=== PATIENT | female | born 1950 | race Native Hawaiian/Other Pacific Islander ===

== ENCOUNTER 2016-10-28 08:42 | Inpatient (IN) | payer OTHER | END 2016-11-28 08:00 | disposition still patient (30) | LOC: PAVA 08:42 | PROVIDERS: ADMIT Internal Medicine | DX: Z51.89 Encounter for other specified aftercare (principal) ==

== ENCOUNTER 2016-11-28 09:00 | Inpatient (IN) | payer OTHER | END 2016-12-29 08:42 | disposition still patient (30) | LOC: PAVA 09:00 | PROVIDERS: ADMIT Internal Medicine | DX: Z51.89 Encounter for other specified aftercare (principal) ==

== ENCOUNTER 2016-12-17 17:20 | Outpatient (CLI) | payer OTHER | END 2016-12-17 20:53 | disposition home or self-care (01) | LOC: CT 17:20 | DX: R22.0 Localized swelling, mass and lump, head (principal); Z85.72 Personal history of non-Hodgkin lymphomas | CPT/HCPCS: Q9963 ==

== ENCOUNTER 2016-12-22 11:11 | Outpatient (CLI) | payer OTHER | END 2016-12-22 23:43 | disposition home or self-care (01) | LOC: CT 11:11 | DX: E04.1 Nontoxic single thyroid nodule (principal); Z85.72 Personal history of non-Hodgkin lymphomas; R59.0 Localized enlarged lymph nodes | CPT/HCPCS: 36415; 82565; 84520; Q9963 ==

== ENCOUNTER 2016-12-29 09:19 | Inpatient (IN) | payer OTHER | END 2017-01-26 08:19 | disposition still patient (30) | LOC: PAVA 09:19 | PROVIDERS: ADMIT Internal Medicine | DX: Z51.89 Encounter for other specified aftercare (principal) ==

== ENCOUNTER 2017-01-26 08:51 | Inpatient (IN) | payer OTHER | END 2017-02-26 08:03 | disposition still patient (30) | LOC: PAVA 08:51 | PROVIDERS: ADMIT Internal Medicine | DX: Z51.89 Encounter for other specified aftercare (principal) ==

== ENCOUNTER 2017-02-26 09:55 | Inpatient (IN) | payer OTHER | END 2017-03-28 08:32 | disposition still patient (30) | LOC: PAVA 09:55 | PROVIDERS: ADMIT Internal Medicine | DX: Z51.89 Encounter for other specified aftercare (principal) ==

== ENCOUNTER 2017-03-26 00:41 | Outpatient (CLI) | payer OTHER | END 2017-03-26 19:06 | disposition home or self-care (01) | LOC: LAB 00:41 | DX: Z16.24 Resistance to multiple antibiotics (principal) | CPT/HCPCS: 87081 ==

== ENCOUNTER 2017-03-28 08:56 | Inpatient (IN) | payer OTHER | END 2017-04-28 08:12 | disposition still patient (30) | LOC: PAVA 08:56 | PROVIDERS: ADMIT Internal Medicine | DX: Z51.89 Encounter for other specified aftercare (principal) ==

== ENCOUNTER 2017-04-28 08:31 | Inpatient (IN) | payer OTHER | END 2017-05-28 14:58 | disposition still patient (30) | LOC: PAVA 08:31 | PROVIDERS: ADMIT Internal Medicine | DX: Z51.89 Encounter for other specified aftercare (principal) ==

== ENCOUNTER 2017-05-03 07:48 | Outpatient (CLI) | payer OTHER ==
[2017-05-03 08:40] LABS: PLATELET COUNT 193 K/uL (152-353)
[2017-05-03 08:43] LABS: POTASSIUM 3.9 mmol/L (3.6-5.2)
== END 2017-05-03 19:09 | disposition home or self-care (01) ==
LOC: LABW 07:48
PROVIDERS: Internal Medicine
DX: Z79.899 Other long term (current) drug therapy (principal); I10 Essential (primary) hypertension; E78.4 Other hyperlipidemia; Z51.81 Encounter for therapeutic drug level monitoring
CPT/HCPCS: 36415; 80053; 80061; 85027

== ENCOUNTER 2017-05-28 15:15 | Inpatient (IN) | payer OTHER | END 2017-06-28 08:37 | disposition still patient (30) | LOC: PAVA 15:15 | PROVIDERS: ADMIT Internal Medicine | DX: Z51.89 Encounter for other specified aftercare (principal) ==

== ENCOUNTER 2017-06-28 09:26 | Inpatient (IN) | payer OTHER | END 2017-07-29 08:12 | disposition still patient (30) | LOC: PAVA 09:26 | PROVIDERS: ADMIT Internal Medicine | DX: Z51.89 Encounter for other specified aftercare (principal) ==

== ENCOUNTER 2017-07-29 08:34 | Inpatient (IN) | payer OTHER | END 2017-08-28 09:09 | disposition still patient (30) | LOC: PAVA 08:34 | PROVIDERS: ADMIT Internal Medicine | DX: Z51.89 Encounter for other specified aftercare (principal) ==

== ENCOUNTER 2017-08-28 09:30 | Inpatient (IN) | payer OTHER | END 2017-09-28 10:26 | disposition still patient (30) | LOC: PAVA 09:30 | PROVIDERS: ADMIT Internal Medicine ==

== ENCOUNTER 2017-09-28 12:34 | Inpatient (IN) | payer OTHER | END 2017-10-28 08:14 | disposition still patient (30) | LOC: PAVA 12:34 | PROVIDERS: ADMIT Internal Medicine ==

== ENCOUNTER 2017-10-28 09:10 | Inpatient (IN) | payer OTHER | END 2017-11-28 08:33 | disposition still patient (30) | LOC: PAVA 09:10 | PROVIDERS: ADMIT Internal Medicine ==

== ENCOUNTER 2017-11-02 06:12 | Outpatient (CLI) | payer OTHER ==
[2017-11-02 06:49] LABS: PLATELET COUNT 179 K/uL (152-353)
[2017-11-02 07:00] LABS: SODIUM 142 mmol/L (136-145)
== END 2017-11-02 21:07 | disposition home or self-care (01) ==
LOC: LAB 06:12
PROVIDERS: Internal Medicine
DX: I10 Essential (primary) hypertension (principal); E04.1 Nontoxic single thyroid nodule
CPT/HCPCS: 80053; 80061; 85027

== ENCOUNTER 2017-11-28 09:16 | Inpatient (IN) | payer OTHER | END 2017-12-29 08:34 | disposition still patient (30) | LOC: PAVA 09:16 | PROVIDERS: ADMIT Internal Medicine ==

== ENCOUNTER 2017-12-29 09:43 | Inpatient (IN) | payer OTHER | END 2018-01-26 08:09 | disposition still patient (30) | LOC: PAVA 09:43 | PROVIDERS: ADMIT Internal Medicine ==

== ENCOUNTER 2018-01-13 08:28 | Outpatient (CLI) | payer OTHER | END 2018-01-13 19:38 | disposition home or self-care (01) | LOC: RAD 08:28 | DX: R06.2 Wheezing (principal); R06.02 Shortness of breath ==

== ENCOUNTER 2018-01-16 10:04 | Outpatient (CLI) | payer OTHER | END 2018-01-16 19:36 | disposition home or self-care (01) | LOC: US 10:04 | DX: E04.8 Other specified nontoxic goiter (principal) ==

== ENCOUNTER 2018-01-26 09:00 | Inpatient (IN) | payer OTHER | END 2018-02-26 08:00 | disposition still patient (30) | LOC: PAVA 09:00 | PROVIDERS: ADMIT Internal Medicine ==

== ENCOUNTER 2018-02-26 09:00 | Inpatient (IN) | payer OTHER | END 2018-03-28 08:13 | disposition still patient (30) | LOC: PAVA 09:00 | PROVIDERS: ADMIT Internal Medicine ==

== ENCOUNTER 2018-03-28 08:52 | Inpatient (IN) | payer OTHER | END 2018-04-28 08:21 | disposition still patient (30) | LOC: PAVA 08:52 | PROVIDERS: ADMIT Internal Medicine ==

== ENCOUNTER 2018-04-28 06:07 | Outpatient (CLI) | payer OTHER ==
[2018-04-28 08:07] LABS: PLATELET COUNT 174 K/uL (152-353)
== END 2018-04-28 19:19 | disposition home or self-care (01) ==
LOC: LAB 06:07
PROVIDERS: Internal Medicine
DX: I10 Essential (primary) hypertension (principal); E78.4 Other hyperlipidemia
CPT/HCPCS: 36415; 80053; 80061; 85027

== ENCOUNTER 2018-04-28 08:45 | Inpatient (IN) | payer OTHER | END 2018-05-28 14:16 | disposition still patient (30) | LOC: PAVA 08:45 | PROVIDERS: ADMIT Internal Medicine ==

== ENCOUNTER 2018-05-28 14:36 | Inpatient (IN) | payer OTHER | END 2018-06-28 08:00 | disposition still patient (30) | LOC: PAVA 14:36 | PROVIDERS: ADMIT Internal Medicine ==

== ENCOUNTER 2018-06-28 09:00 | Inpatient (IN) | payer OTHER | END 2018-07-29 09:58 | disposition still patient (30) | LOC: PAVA 09:00 | PROVIDERS: ADMIT Internal Medicine ==

== ENCOUNTER 2018-07-29 10:13 | Inpatient (IN) | payer OTHER | END 2018-08-28 08:41 | disposition still patient (30) | LOC: PAVA 10:13 | PROVIDERS: ADMIT Internal Medicine ==

== ENCOUNTER 2018-08-11 11:57 | Outpatient (CLI) | payer OTHER | END 2018-08-11 19:41 | disposition home or self-care (01) | LOC: LAB 11:57 | DX: R41.82 Altered mental status, unspecified (principal) | CPT/HCPCS: 81000 ==

== ENCOUNTER 2018-08-28 09:04 | Inpatient (IN) | payer OTHER | END 2018-09-28 08:12 | disposition still patient (30) | LOC: PAVA 09:04 | PROVIDERS: ADMIT Internal Medicine ==

== ENCOUNTER 2018-09-28 08:32 | Inpatient (IN) | payer OTHER | END 2018-10-28 08:06 | disposition still patient (30) | LOC: PAVA 08:32 | PROVIDERS: ADMIT Internal Medicine ==

== ENCOUNTER 2018-10-28 08:22 | Inpatient (IN) | payer OTHER | END 2018-11-28 10:22 | disposition still patient (30) | LOC: PAVA 08:22 | PROVIDERS: ADMIT Internal Medicine ==

== ENCOUNTER 2018-11-06 04:34 | Outpatient (CLI) | payer OTHER ==
[2018-11-06 06:30] LABS: PLATELET COUNT 190 K/uL (152-353)
== END 2018-11-06 22:44 | disposition home or self-care (01) ==
LOC: LAB 04:34
PROVIDERS: Internal Medicine
DX: I10 Essential (primary) hypertension (principal); E78.49 Other hyperlipidemia
CPT/HCPCS: 80053; 80061; 85027

== ENCOUNTER 2018-11-07 10:12 | Outpatient (CLI) | payer OTHER | END 2018-11-07 22:10 | disposition home or self-care (01) | LOC: RAD 10:12 | DX: Z78.0 Asymptomatic menopausal state (principal) ==

== ENCOUNTER 2018-11-28 10:59 | Inpatient (IN) | payer OTHER | END 2018-12-29 14:17 | disposition still patient (30) | LOC: PAVA 10:59 | PROVIDERS: ADMIT Internal Medicine ==

== ENCOUNTER 2018-12-29 14:21 | Inpatient (IN) | payer OTHER | END 2019-01-26 09:16 | disposition still patient (30) | LOC: PAVA 14:21 | PROVIDERS: ADMIT Internal Medicine ==

== ENCOUNTER 2019-01-26 10:07 | Inpatient (IN) | payer OTHER | END 2019-02-26 07:56 | disposition still patient (30) | LOC: PAVA 10:07 | PROVIDERS: ADMIT Internal Medicine ==

== ENCOUNTER 2019-02-26 08:36 | Inpatient (IN) | payer OTHER | END 2019-03-28 09:43 | disposition still patient (30) | LOC: PAVA 08:36 | PROVIDERS: ADMIT Internal Medicine ==

== ENCOUNTER 2019-03-28 11:05 | Inpatient (IN) | payer OTHER | END 2019-04-28 08:14 | disposition still patient (30) | LOC: PAVA 11:05 | PROVIDERS: ADMIT Internal Medicine | DX: Z51.89 Encounter for other specified aftercare (principal) ==

== ENCOUNTER 2019-03-30 08:26 | Outpatient (CLI) | payer OTHER | END 2019-03-30 19:58 | disposition home or self-care (01) | LOC: US 08:26 | DX: K80.20 Calculus of gallbladder without cholecystitis without obstruction (principal) ==

== ENCOUNTER 2019-04-28 08:30 | Inpatient (IN) | payer OTHER | END 2019-05-28 08:31 | disposition still patient (30) | LOC: PAVA 08:30 | PROVIDERS: ADMIT Internal Medicine ==

== ENCOUNTER 2019-04-30 04:36 | Outpatient (CLI) | payer OTHER ==
[2019-04-30 05:29] LABS: PLATELET COUNT 191 K/uL (152-353)
[2019-04-30 06:52] LABS: POTASSIUM 4.1 mmol/L (3.6-5.2)
== END 2019-04-30 19:08 | disposition home or self-care (01) ==
LOC: LAB 04:36
PROVIDERS: Internal Medicine
DX: I10 Essential (primary) hypertension (principal)
CPT/HCPCS: 36415; 80053; 82306; 82607; 85027

== ENCOUNTER 2019-05-28 09:21 | Inpatient (IN) | payer OTHER | END 2019-06-28 09:09 | disposition still patient (30) | LOC: PAVA 09:21 | PROVIDERS: ADMIT Internal Medicine ==

== ENCOUNTER 2019-06-28 10:16 | Inpatient (IN) | payer OTHER | END 2019-07-29 15:59 | disposition still patient (30) | LOC: PAVA 10:16 | PROVIDERS: ADMIT Internal Medicine ==

== ENCOUNTER 2019-06-30 04:12 | Outpatient (CLI) | payer OTHER | END 2019-06-30 23:31 | disposition home or self-care (01) | LOC: LAB 04:12 | PROVIDERS: Internal Medicine | DX: E78.5 Hyperlipidemia, unspecified (principal) | CPT/HCPCS: 80061 ==

== ENCOUNTER 2019-07-29 16:07 | Inpatient (IN) | payer OTHER | END 2019-08-28 08:06 | disposition still patient (30) | LOC: PAVA 16:07 | PROVIDERS: ADMIT Internal Medicine ==

== ENCOUNTER 2019-07-31 06:28 | Outpatient (CLI) | payer OTHER | END 2019-07-31 22:47 | disposition home or self-care (01) | LOC: LAB 06:28 | DX: E55.9 Vitamin D deficiency, unspecified (principal) | CPT/HCPCS: 82306 ==

== ENCOUNTER 2019-08-28 09:15 | Inpatient (IN) | payer OTHER | END 2019-09-28 09:04 | disposition still patient (30) | LOC: PAVA 09:15 | PROVIDERS: ADMIT Internal Medicine ==

== ENCOUNTER 2019-09-28 11:03 | Inpatient (IN) | payer OTHER | END 2019-10-28 08:00 | disposition still patient (30) | LOC: PAVA 11:03 | PROVIDERS: ADMIT Internal Medicine ==

== ENCOUNTER 2019-10-28 09:00 | Inpatient (IN) | payer OTHER | END 2019-11-28 08:00 | disposition still patient (30) | LOC: PAVA 09:00 | PROVIDERS: ADMIT Internal Medicine ==

== ENCOUNTER 2019-10-31 12:15 | Outpatient (CLI) | payer OTHER ==
[2019-10-31 12:34] LABS: PLATELET COUNT 212 K/uL (152-353)
[2019-10-31 12:47] LABS: POTASSIUM 4.5 mmol/L (3.6-5.2)
== END 2019-10-31 20:03 | disposition home or self-care (01) ==
LOC: LAB 12:15
PROVIDERS: Internal Medicine
DX: I10 Essential (primary) hypertension (principal)
CPT/HCPCS: 36415; 80053; 85027

== ENCOUNTER 2019-11-28 08:29 | Inpatient (IN) | payer OTHER | END 2019-12-29 09:32 | disposition still patient (30) | LOC: PAVA 08:29 | PROVIDERS: ADMIT Internal Medicine ==

== ENCOUNTER 2019-12-29 09:50 | Inpatient (IN) | payer OTHER | END 2020-01-27 12:46 | disposition still patient (30) | LOC: PAVA 09:50 | PROVIDERS: ADMIT Internal Medicine ==

== ENCOUNTER 2019-12-30 03:58 | Outpatient (CLI) | payer OTHER | END 2019-12-30 19:00 | disposition home or self-care (01) | LOC: LAB 03:58 | PROVIDERS: Internal Medicine | DX: E78.5 Hyperlipidemia, unspecified (principal) | CPT/HCPCS: 80061 ==

== ENCOUNTER 2020-01-27 13:06 | Inpatient (IN) | payer OTHER | END 2020-02-27 08:59 | disposition still patient (30) | LOC: PAVA 13:06 | PROVIDERS: ADMIT Internal Medicine ==

== ENCOUNTER 2020-02-27 09:24 | Inpatient (IN) | payer OTHER | END 2020-03-28 08:04 | disposition still patient (30) | LOC: PAVA 09:24 | PROVIDERS: ADMIT Internal Medicine ==

== ENCOUNTER 2020-03-28 08:54 | Inpatient (IN) | payer OTHER | END 2020-04-28 08:12 | disposition still patient (30) | LOC: PAVA 08:54 | PROVIDERS: ADMIT Internal Medicine | CPT/HCPCS: 87635; U0002 ==

== ENCOUNTER 2020-04-28 06:24 | Outpatient (CLI) | payer OTHER ==
[2020-04-28 08:08] LABS: PLATELET COUNT 205 K/uL (152-353)
[2020-04-28 08:27] LABS: POTASSIUM 4.1 mmol/L (3.6-5.2)
== END 2020-04-28 19:49 | disposition home or self-care (01) ==
LOC: LAB 06:24
PROVIDERS: Internal Medicine
DX: I10 Essential (primary) hypertension (principal)
CPT/HCPCS: 80053; 85027

== ENCOUNTER 2020-04-28 08:45 | Inpatient (IN) | payer OTHER | END 2020-05-28 08:27 | disposition still patient (30) | LOC: PAVA 08:45 | PROVIDERS: ADMIT Internal Medicine | CPT/HCPCS: 87635; U0002 ==

== ENCOUNTER 2020-04-29 14:16 | Outpatient (CLI) | payer OTHER | END 2020-04-29 19:14 | disposition home or self-care (01) | LOC: RAD 14:16 | DX: R06.02 Shortness of breath (principal) ==

== ENCOUNTER 2020-05-28 09:52 | Inpatient (IN) | payer OTHER | END 2020-06-28 08:23 | disposition still patient (30) | LOC: PAVA 09:52 | PROVIDERS: ADMIT Internal Medicine | CPT/HCPCS: 87635; U0002 ==

== ENCOUNTER 2020-06-28 09:01 | Inpatient (IN) | payer OTHER | END 2020-07-29 10:51 | disposition still patient (30) | LOC: PAVA 09:01 | PROVIDERS: ADMIT Internal Medicine | CPT/HCPCS: 87635; U0002 ==

== ENCOUNTER 2020-06-30 08:53 | Outpatient (CLI) | payer OTHER | END 2020-06-30 22:35 | disposition home or self-care (01) | LOC: LAB 08:53 | PROVIDERS: Internal Medicine | DX: E78.49 Other hyperlipidemia (principal) | CPT/HCPCS: 80061 ==

== ENCOUNTER 2020-07-15 07:45 | Outpatient (CLI) | payer OTHER | END 2020-07-15 19:38 | disposition home or self-care (01) | LOC: LAB 07:45 | DX: E04.1 Nontoxic single thyroid nodule (principal) | CPT/HCPCS: 82565; 84520 ==

== ENCOUNTER 2020-07-16 10:02 | Outpatient (CLI) | payer OTHER | END 2020-07-16 21:27 | disposition home or self-care (01) | LOC: CT 10:02 | DX: E04.1 Nontoxic single thyroid nodule (principal) | CPT/HCPCS: Q9963 ==

== ENCOUNTER 2020-07-29 11:31 | Inpatient (IN) | payer OTHER | END 2020-08-28 09:34 | disposition still patient (30) | LOC: PAVA 11:31 | PROVIDERS: ADMIT Internal Medicine ==

== ENCOUNTER 2020-08-06 08:41 | Outpatient (CLI) | payer OTHER ==
[~2020-08-06] VITALS: Ht 30.5 cm; Wt 0.5 kg
[2020-08-06 09:00] LABS: PARTIAL THROMBOPLASTIN TIME 21.5 SECONDS (24.5-33.6)
== END 2020-08-06 23:16 | disposition home or self-care (01) ==
LOC: LAB 08:41 → US 13:00 → LAB 23:16
PROVIDERS: Internal Medicine
DX: Z01.812 Encounter for preprocedural laboratory examination (principal); R59.0 Localized enlarged lymph nodes; E04.1 Nontoxic single thyroid nodule; C73 Malignant neoplasm of thyroid gland; Z51.81 Encounter for therapeutic drug level monitoring
CPT/HCPCS: 85610; 85730

== ENCOUNTER 2020-08-28 10:53 | Inpatient (IN) | payer OTHER | END 2020-09-28 08:00 | disposition still patient (30) | LOC: PAVA 10:53 | PROVIDERS: ADMIT Internal Medicine ==

== ENCOUNTER 2020-09-24 12:06 | Outpatient (CLI) | payer OTHER | END 2020-09-24 23:24 | disposition home or self-care (01) | LOC: RESP 12:06 | DX: E04.1 Nontoxic single thyroid nodule (principal) | CPT/HCPCS: 93005 ==

== ENCOUNTER 2020-09-28 09:00 | Inpatient (IN) | payer OTHER | END 2020-10-28 08:38 | disposition still patient (30) | LOC: PAVA 09:00 | PROVIDERS: ADMIT Internal Medicine; ATTEND Internal Medicine ==

== ENCOUNTER 2020-09-29 11:19 | Outpatient (CLI) | payer OTHER ==
[2020-09-29 11:52] LABS: PLATELET COUNT 179 K/uL (152-353)
[2020-09-29 12:05] LABS: POTASSIUM 4.6 mmol/L (3.6-5.2)
== END 2020-09-29 23:25 | disposition home or self-care (01) ==
LOC: LAB 11:19
PROVIDERS: Internal Medicine
DX: Z01.818 Encounter for other preprocedural examination (principal)
CPT/HCPCS: 80053; 85027

== ENCOUNTER 2020-10-28 06:50 | Outpatient (CLI) | payer OTHER | END 2020-10-28 22:21 | disposition home or self-care (01) | LOC: LAB 06:50 | PROVIDERS: ATTEND Internal Medicine | DX: I10 Essential (primary) hypertension (principal) ==

== ENCOUNTER 2020-10-28 09:34 | Inpatient (IN) | payer OTHER | END 2020-11-28 08:29 | disposition still patient (30) | LOC: PAVA 09:34 | PROVIDERS: ADMIT Internal Medicine; ATTEND Internal Medicine ==

== ENCOUNTER 2020-10-29 10:34 | Outpatient (CLI) | payer OTHER ==
[2020-10-29 10:56] LABS: PLATELET COUNT 226 K/uL (152-353)
[2020-10-29 11:20] LABS: POTASSIUM 3.8 mmol/L (3.6-5.2)
== END 2020-10-29 19:56 | disposition home or self-care (01) ==
LOC: LAB 10:34
PROVIDERS: ATTEND Internal Medicine
DX: I10 Essential (primary) hypertension (principal)
CPT/HCPCS: 80053; 85027

== ENCOUNTER 2020-11-11 14:31 | Outpatient (CLI) | payer OTHER | END 2020-11-11 22:03 | disposition home or self-care (01) | LOC: RAD 14:31 | PROVIDERS: ATTEND Internal Medicine | DX: M81.0 Age-related osteoporosis without current pathological fracture (principal) ==

== ENCOUNTER 2020-11-28 08:59 | Inpatient (IN) | payer OTHER | END 2020-12-29 13:11 | disposition still patient (30) | LOC: PAVA 08:59 | PROVIDERS: ADMIT Internal Medicine; ATTEND Internal Medicine ==

== ENCOUNTER 2020-12-29 07:39 | Outpatient (CLI) | payer OTHER | END 2020-12-29 19:14 | disposition home or self-care (01) | LOC: LAB 07:39 | PROVIDERS: ATTEND Internal Medicine | DX: E78.49 Other hyperlipidemia (principal) | CPT/HCPCS: 80061 ==

== ENCOUNTER 2020-12-29 14:25 | Inpatient (IN) | payer OTHER | END 2021-01-26 08:41 | disposition still patient (30) | LOC: PAVA 14:25 | PROVIDERS: ADMIT Internal Medicine; ATTEND Internal Medicine ==

== ENCOUNTER 2021-01-26 09:17 | Inpatient (IN) | payer OTHER | END 2021-02-26 08:33 | disposition still patient (30) | LOC: PAVA 09:17 | PROVIDERS: ADMIT Internal Medicine; ATTEND Internal Medicine ==

== ENCOUNTER 2021-02-26 09:41 | Inpatient (IN) | payer OTHER | END 2021-03-28 11:57 | disposition still patient (30) | LOC: PAVA 09:41 | PROVIDERS: ADMIT Internal Medicine; ATTEND Internal Medicine ==

== ENCOUNTER 2021-03-28 12:12 | Inpatient (IN) | payer OTHER | END 2021-04-28 13:25 | disposition still patient (30) | LOC: PAVA 12:12 | PROVIDERS: ADMIT Internal Medicine; ATTEND Internal Medicine ==

== ENCOUNTER 2021-04-28 14:28 | Inpatient (IN) | payer OTHER | END 2021-05-28 08:00 | disposition still patient (30) | LOC: PAVA 14:28 | PROVIDERS: ADMIT Internal Medicine; ATTEND Internal Medicine ==

== ENCOUNTER 2021-04-29 11:28 | Outpatient (CLI) | payer OTHER ==
[2021-04-29 12:24] LABS: PLATELET COUNT 229 K/uL (152-353)
[2021-04-29 13:39] LABS: POTASSIUM 3.9 mmol/L (3.6-5.2)
== END 2021-04-29 21:00 | disposition home or self-care (01) ==
LOC: LAB 11:28
PROVIDERS: ATTEND Internal Medicine
DX: F20.89 Other schizophrenia (principal); C85.80 Other specified types of non-Hodgkin lymphoma, unspecified site; E78.49 Other hyperlipidemia
CPT/HCPCS: 80053; 85027

== ENCOUNTER 2021-05-28 09:00 | Inpatient (IN) | payer OTHER | END 2021-06-28 08:00 | disposition still patient (30) | LOC: PAVA 09:00 | PROVIDERS: ADMIT Internal Medicine; ATTEND Internal Medicine ==

== ENCOUNTER 2021-06-28 09:00 | Inpatient (IN) | payer OTHER | END 2021-07-29 09:09 | disposition still patient (30) | LOC: PAVA 09:00 | PROVIDERS: ADMIT Internal Medicine; ATTEND Internal Medicine ==

== ENCOUNTER 2021-06-29 09:07 | Outpatient (CLI) | payer OTHER | END 2021-06-29 22:37 | disposition home or self-care (01) | LOC: LAB 09:07 | PROVIDERS: ATTEND Internal Medicine | DX: E78.49 Other hyperlipidemia (principal) | CPT/HCPCS: 80061 ==

== ENCOUNTER 2021-07-29 09:50 | Inpatient (IN) | payer OTHER | END 2021-08-28 08:11 | disposition still patient (30) | LOC: PAVA 09:50 | PROVIDERS: ADMIT Internal Medicine; ATTEND Internal Medicine ==

== ENCOUNTER 2021-08-20 12:35 | Outpatient (CLI) | payer OTHER | END 2021-08-20 19:13 | disposition home or self-care (01) | LOC: LAB 12:35 | PROVIDERS: ATTEND Internal Medicine | DX: R30.9 Painful micturition, unspecified (principal) | CPT/HCPCS: 81000 ==

== ENCOUNTER 2021-10-28 07:17 | Outpatient (CLI) | payer OTHER ==
[2021-10-28 08:18] LABS: PLATELET COUNT 222 K/uL (152-353)
[2021-10-28 08:29] LABS: POTASSIUM 4.1 mmol/L (3.6-5.2)
== END 2021-10-28 20:10 | disposition home or self-care (01) ==
LOC: LAB 07:17
PROVIDERS: ATTEND Internal Medicine
DX: F20.89 Other schizophrenia (principal); C85.80 Other specified types of non-Hodgkin lymphoma, unspecified site; E78.49 Other hyperlipidemia
CPT/HCPCS: 80053; 85027

== ENCOUNTER 2021-10-28 09:10 | Inpatient (IN) | payer OTHER | END 2021-11-28 07:57 | disposition still patient (30) | LOC: PAVA 09:10 | PROVIDERS: ADMIT Internal Medicine; ATTEND Internal Medicine ==

== ENCOUNTER 2021-11-28 08:17 | Inpatient (IN) | payer OTHER | END 2021-12-29 08:52 | disposition still patient (30) | LOC: PAVA 08:17 | PROVIDERS: ADMIT Internal Medicine; ATTEND Internal Medicine ==

== ENCOUNTER 2021-12-29 10:52 | Inpatient (IN) | payer OTHER | END 2022-01-26 08:55 | disposition still patient (30) | LOC: PAVA 10:52 | PROVIDERS: ADMIT Internal Medicine; ATTEND Internal Medicine ==

== ENCOUNTER 2021-12-30 07:54 | Outpatient (CLI) | payer OTHER | END 2021-12-30 19:30 | disposition home or self-care (01) | LOC: LAB 07:54 | PROVIDERS: ATTEND Internal Medicine | DX: E78.49 Other hyperlipidemia (principal) | CPT/HCPCS: 80061 ==

== ENCOUNTER 2022-01-07 14:01 | Outpatient (CLI) | payer OTHER | END 2022-01-07 19:18 | disposition home or self-care (01) | LOC: RESP 14:01 | PROVIDERS: ATTEND Internal Medicine | DX: R00.0 Tachycardia, unspecified (principal) | CPT/HCPCS: 93005 ==

== ENCOUNTER 2022-01-26 11:16 | Inpatient (IN) | payer OTHER | END 2022-02-26 08:10 | disposition still patient (30) | LOC: PAVA 11:16 | PROVIDERS: ADMIT Internal Medicine; ATTEND Internal Medicine ==

== ENCOUNTER 2022-02-26 08:36 | Inpatient (IN) | payer OTHER | END 2022-03-28 10:55 | disposition still patient (30) | LOC: PAVA 08:36 | PROVIDERS: ADMIT Internal Medicine; ATTEND Internal Medicine ==

== ENCOUNTER 2022-03-28 03:51 | Inpatient (IN) | payer OTHER | END 2022-04-28 09:26 | disposition still patient (30) | LOC: PAVA 03:51 | PROVIDERS: ADMIT Internal Medicine; ATTEND Internal Medicine ==

== ENCOUNTER 2022-04-21 05:47 | Outpatient (CLI) | payer OTHER ==
[2022-04-21 06:45] LABS: POTASSIUM 3.9 mmol/L (3.6-5.2)
[2022-04-21 07:04] LABS: PLATELET COUNT 199 K/uL (152-353)
== END 2022-04-21 18:53 | disposition home or self-care (01) ==
LOC: LAB 05:47
PROVIDERS: ATTEND Internal Medicine
DX: R53.83 Other fatigue (principal)
CPT/HCPCS: 80048; 81000; 82607; 82746; 84443; 85027

== ENCOUNTER 2022-04-28 10:31 | Outpatient (CLI) | payer OTHER ==
[2022-04-28 10:45] LABS: PLATELET COUNT 201 K/uL (152-353)
[2022-04-28 10:54] LABS: POTASSIUM 4.1 mmol/L (3.6-5.2)
== END 2022-04-28 19:13 | disposition home or self-care (01) ==
LOC: LAB 10:31
PROVIDERS: ATTEND Internal Medicine
DX: E78.49 Other hyperlipidemia (principal); F20.89 Other schizophrenia; C85.80 Other specified types of non-Hodgkin lymphoma, unspecified site
CPT/HCPCS: 80053; 85027

== ENCOUNTER 2022-04-28 11:40 | Inpatient (IN) | payer OTHER | END 2022-05-28 09:01 | disposition still patient (30) | LOC: PAVA 11:40 | PROVIDERS: ADMIT Internal Medicine; ATTEND Internal Medicine ==

== ENCOUNTER 2022-05-28 10:36 | Inpatient (IN) | payer OTHER | END 2022-06-28 09:24 | disposition still patient (30) | LOC: PAVA 10:36 | PROVIDERS: ADMIT Internal Medicine; ATTEND Internal Medicine ==

== ENCOUNTER 2022-06-28 11:17 | Outpatient (CLI) | payer OTHER | END 2022-06-28 18:59 | disposition home or self-care (01) | LOC: LAB 11:17 | PROVIDERS: ATTEND Internal Medicine | DX: E78.49 Other hyperlipidemia (principal) | CPT/HCPCS: 80061 ==

== ENCOUNTER 2022-06-28 14:48 | Inpatient (IN) | payer OTHER | END 2022-07-29 08:59 | disposition still patient (30) | LOC: PAVA 14:48 | PROVIDERS: ADMIT Internal Medicine; ATTEND Internal Medicine ==

== ENCOUNTER 2022-07-23 06:47 | Outpatient (CLI) | payer OTHER | END 2022-07-23 18:52 | disposition home or self-care (01) | LOC: LAB 06:47 | PROVIDERS: ATTEND Internal Medicine Endocrinology, Diabetes & Metabolism | DX: E03.8 Other specified hypothyroidism (principal); D51.8 Other vitamin B12 deficiency anemias | CPT/HCPCS: 82607; 84443 ==

== ENCOUNTER 2022-07-29 10:10 | Inpatient (IN) | payer OTHER | END 2022-08-28 10:20 | disposition still patient (30) | LOC: PAVA 10:10 | PROVIDERS: ADMIT Internal Medicine Endocrinology, Diabetes & Metabolism; ATTEND Internal Medicine Endocrinology, Diabetes & Metabolism ==

== ENCOUNTER 2022-08-28 12:07 | Inpatient (IN) | payer OTHER | END 2022-09-28 09:45 | disposition still patient (30) | LOC: PAVA 12:07 | PROVIDERS: ADMIT Internal Medicine Endocrinology, Diabetes & Metabolism; ATTEND Internal Medicine Endocrinology, Diabetes & Metabolism ==

== ENCOUNTER 2022-09-28 10:19 | Inpatient (IN) | payer OTHER | END 2022-10-28 10:05 | disposition still patient (30) | LOC: PAVA 10:19 | PROVIDERS: ADMIT Internal Medicine Endocrinology, Diabetes & Metabolism; ATTEND Internal Medicine Endocrinology, Diabetes & Metabolism ==

== ENCOUNTER 2022-10-28 10:34 | Inpatient (IN) | payer OTHER | END 2022-11-28 10:31 | disposition still patient (30) | LOC: PAVA 10:34 | PROVIDERS: ADMIT Internal Medicine Endocrinology, Diabetes & Metabolism; ATTEND Internal Medicine Endocrinology, Diabetes & Metabolism ==

== ENCOUNTER 2022-10-29 07:52 | Outpatient (CLI) | payer OTHER ==
[2022-10-29 08:28] LABS: PLATELET COUNT 218 K/uL (152-353)
[2022-10-29 09:14] LABS: POTASSIUM 4.6 mmol/L (3.6-5.2)
== END 2022-10-29 19:09 | disposition home or self-care (01) ==
LOC: LAB 07:52
PROVIDERS: ATTEND Internal Medicine Endocrinology, Diabetes & Metabolism
DX: E78.49 Other hyperlipidemia (principal); F20.89 Other schizophrenia
CPT/HCPCS: 80053; 85027

== ENCOUNTER 2022-11-15 10:32 | Outpatient (CLI) | payer OTHER | END 2022-11-15 18:56 | disposition home or self-care (01) | LOC: RAD 10:32 | PROVIDERS: ATTEND Internal Medicine Endocrinology, Diabetes & Metabolism | DX: M85.88 Other specified disorders of bone density and structure, other site (principal); Z13.820 Encounter for screening for osteoporosis ==

== ENCOUNTER 2022-11-28 11:23 | Inpatient (IN) | payer OTHER | END 2022-12-29 08:38 | disposition still patient (30) | LOC: PAVA 11:23 | PROVIDERS: ADMIT Internal Medicine Endocrinology, Diabetes & Metabolism; ATTEND Internal Medicine Endocrinology, Diabetes & Metabolism ==

== ENCOUNTER 2022-12-29 10:10 | Inpatient (IN) | payer OTHER | END 2023-01-26 09:52 | disposition still patient (30) | LOC: PAVA 10:10 | PROVIDERS: ADMIT Internal Medicine Endocrinology, Diabetes & Metabolism; ATTEND Internal Medicine Endocrinology, Diabetes & Metabolism ==

== ENCOUNTER 2023-01-03 05:00 | Outpatient (CLI) | payer OTHER | END 2023-01-03 19:24 | disposition home or self-care (01) | LOC: LAB 05:00 | PROVIDERS: ATTEND Internal Medicine Endocrinology, Diabetes & Metabolism | DX: E78.49 Other hyperlipidemia (principal) | CPT/HCPCS: 36415; 80061 ==

== ENCOUNTER 2023-01-26 11:49 | Inpatient (IN) | payer OTHER | END 2023-02-26 10:59 | disposition still patient (30) | LOC: PAVA 11:49 | PROVIDERS: ADMIT Internal Medicine Endocrinology, Diabetes & Metabolism; ATTEND Internal Medicine Endocrinology, Diabetes & Metabolism ==

== ENCOUNTER 2023-02-26 11:19 | Inpatient (IN) | payer OTHER | END 2023-03-28 09:54 | disposition still patient (30) | LOC: PAVA 11:19 | PROVIDERS: ADMIT Internal Medicine Endocrinology, Diabetes & Metabolism; ATTEND Internal Medicine Endocrinology, Diabetes & Metabolism ==

== ENCOUNTER 2023-03-28 10:27 | Inpatient (IN) | payer OTHER | END 2023-04-28 09:10 | disposition still patient (30) | LOC: PAVA 10:27 | PROVIDERS: ADMIT Internal Medicine Endocrinology, Diabetes & Metabolism; ATTEND Internal Medicine Endocrinology, Diabetes & Metabolism ==

== ENCOUNTER 2023-04-28 10:32 | Inpatient (IN) | payer OTHER | END 2023-05-28 17:44 | disposition still patient (30) | LOC: PAVA 10:32 → PAVC 05-18 14:22 | PROVIDERS: ADMIT Internal Medicine Endocrinology, Diabetes & Metabolism; ATTEND Internal Medicine Endocrinology, Diabetes & Metabolism ==

== ENCOUNTER 2023-05-02 09:39 | Outpatient (CLI) | payer OTHER ==
[2023-05-02 10:29] LABS: POTASSIUM 4.5 mmol/L (3.6-5.2)
[2023-05-02 10:46] LABS: PLATELET COUNT 220 K/uL (152-353)
== END 2023-05-02 19:22 | disposition home or self-care (01) ==
LOC: LAB 09:39
PROVIDERS: ATTEND Internal Medicine Endocrinology, Diabetes & Metabolism
DX: I10 Essential (primary) hypertension (principal); E78.49 Other hyperlipidemia; F20.89 Other schizophrenia
CPT/HCPCS: 36415; 80053; 85027

== ENCOUNTER 2023-06-10 13:35 | Outpatient (CLI) | payer OTHER ==
[2023-06-10 13:52] LABS: PLATELET COUNT 244 K/uL (152-353)
== END 2023-06-10 18:59 | disposition home or self-care (01) ==
LOC: LAB 13:35
PROVIDERS: ATTEND Internal Medicine
DX: R42 Dizziness and giddiness (principal)
CPT/HCPCS: 85027; 93005

== ENCOUNTER 2023-06-14 06:25 | Outpatient (CLI) | payer OTHER | END 2023-06-14 19:11 | disposition home or self-care (01) | LOC: LAB 06:25 | PROVIDERS: ATTEND Internal Medicine | DX: R19.5 Other fecal abnormalities (principal) | CPT/HCPCS: 82272 ==

== ENCOUNTER 2023-07-05 10:38 | Outpatient (CLI) | payer OTHER ==
[2023-07-05 12:30] LABS: PLATELET COUNT 210 K/uL (152-353)
== END 2023-07-05 20:24 | disposition home or self-care (01) ==
LOC: LAB 10:38
PROVIDERS: ATTEND Internal Medicine
DX: R79.89 Other specified abnormal findings of blood chemistry (principal)
CPT/HCPCS: 36415; 85027